=== PATIENT | male | born 1955 | race Caucasian/White ===

== ENCOUNTER 2021-09-24 03:55 | Inpatient (IN) ==
[2021-09-24] MEDS ORDERED: SODIUM CHLORIDE 0.9% 500 ML IV STA (04:21)
[2021-09-24] MEDS ORDERED: HYDROmorphone INJ 0.5 MG/0.5 ML SYR IV STA ×2 (04:21→05:54)
[2021-09-24] MEDS ORDERED: ONDANSETRON INJ 2 MG/ML 2 ML VIAL IV STA (04:21)
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
[2021-09-24 04:48] LABS: Basophils # (auto) 0.03 K/uL (0-0.2); Basophils % (auto) 0.2 %; Eosinophils % (auto) 1.6 %; Hematocrit (blood only) 31.8 % (42-52); Hemoglobin 11.2 g/dL (14.0-18.0); Immature Granulocytes # (auto) 0.04 K/uL (0.00-0.02); Immature Granulocytes % (auto) 0.3 %; Lymphocytes % (auto) 16.3 %; Mean Corpuscular Hemoglobin 30.2 pg (25-34); Mean Corpuscular Hgb Conc 35.2 g/dL (32-36); Mean Corpuscular Volume 85.7 fL (80-100); Mean Platelet Volume 8.4 fL (7.4-10.4); Monocytes # (auto) 0.75 K/uL (0.11-0.59); Monocytes % (auto) 5.8 %; Neutrophils # (auto) 9.77 K/uL (1.4-6.5); Neutrophils % (auto) 75.8 %; Platelet Count 366 K/uL (130-400); RDW Standard Deviation 40.5 fL (36.4-46.3); Red Blood Count 3.71 M/uL (4.7-6.1); White Blood Count 12.89 K/uL (4.8-10.8)
[2021-09-24] MEDS ORDERED: GI COCKTAIL ED USE PO ONE (04:53)
[2021-09-24 05:07] LABS: Alanine Aminotransferase 5 U/L (7-52); Albumin Level 3.9 gm/dl (3.4-5.0); Alkaline Phosphatase 80 U/L (34-104); Anion Gap 10 (3-11); Aspartate Aminotransferase 12 U/L (13-39); BUN Creatinine Ratio 20.3 (10-20); Bilirubin,Total 0.3 mg/dl (0.2-1.0); Blood Urea Nitrogen 13 mg/dl (6-23); Calcium 9.4 mg/dl (8.5-10.1); Carbon Dioxide 18 mmol/L (21-32); Chloride 98 mmol/L (98-107); Creatinine Clr Calc Pharmacy 105.3 ml/min; Est GFR (African American) 119.1 ml/min; Est GFR (Non-African American) 102.7 ml/min; Globulin 3.9 gm/dl (2.5-4.0); Glucose 99 mg/dl (70-99(Fasting)); Lipase 31 U/L (11-82); Potassium 3.3 mmol/L (3.5-5.1); Sodium 126 mmol/L (136-145); Total Protein 7.8 gm/dl (6.0-8.3)
[2021-09-24 05:09] LABS: Troponin I < 0.03 ng/ml (0-0.04)
[2021-09-24] MEDS ORDERED: SODIUM CHLORIDE 0.9% 1000ML 1,000 ML IV ONE (05:15)
[2021-09-24] MEDS ORDERED: OPTIRAY 320 100ml IV ONE (05:25)
[2021-09-24] MEDS ORDERED: FAMOTIDINE 20MG IV PUSH 20 MG/5 ML SYR IV STA (05:53)
[2021-09-24] MEDS ORDERED: POTASSIUM CHLORIDE CRTAB 20 MEQ TABCR PO STA (06:34)
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
--- NOTE | 2021-09-24 07:31 | CT Scan Report ---
ABDOMEN AND PELVIS CT WITH IV CONTRAST CT DOSE: 266.61 mGy.cm HISTORY: Subacute epigastric abdominal pain epigastric pain TECHNIQUE: Multiaxial CT images of the abdomen and pelvis were performed following the IV administrat ion of 94 cc of Optiray, A dose lowering technique was utilized adhering to the principles of ALARA. COMPARISON STUDY: Chest radiograph of same day FINDINGS: The imaged inferior cardiac chambers are unremarkable. There is emphysema with mild subsegmental biba silar atelectasis/scarring. Subpleural cystic changes of the lung bases with mild bronchiectasis. No pneumatosis or pneumoperitoneum. Streak artifact from hip arthroplasties limits evaluation of the pel loraine structures. Unremarkable spleen, adrenal glands, gallbladder and liver. There is atrophy of the pancreas with mil d fullness of the pancreatic head and uncinate process. No discrete pancreatic lesion or pancreatic d uctal dilation identified. There is inflammatory stranding within the pancreaticoduodenal groove. There are a few cysts of the kidneys measuring up to 2 cm on the right. There is no hydronephrosis. U rinary bladder wall thickening with partial distention. Prostamegaly. Pelvic basin phleboliths. Exten sive atherosclerosis of the abdominal aorta without aneurysm. No adenopathy. Unremarkable IVC. Patent portal vein. There is no bowel obstruction. There is wall thickening within the first and second portions of the d uodenum with adjacent inflammatory stranding. Additionally, there is mucosal hyperemia with a suggest ed 12 mm duodenal ulcer on image 143 series 3. No perforation or abscess identified. Mild wall thicke kelly of the rectosigmoid with partial distention. Colonic diverticulosis. Moderate fecal retention. T he appendix is not definitively seen. There is mild generalized body wall edema. No acute fracture. IMPRESSION: 1. There is mucosal ulceration of the duodenum with associated duodenal wall thickening and periduode nal inflammatory stranding. Findings may represent peptic ulcer disease, however correlation with GI consultation and endoscopy is needed to exclude an ulcerative mucosal lesion. This finding was called /faxed to the emergency department at time of dictation. 2. Trace edema within the pancreaticoduodenal groove is likely reactive. Correlate with lipase to exc lude concomitant acute pancreatitis. 3. No perforation or abscess. 4. No bowel obstruction. 5. Additional incidental findings as above. ACT 112: Negative or not required by law. The above report was generated using voice recognition software. It may contain grammatical, syntax o r spelling errors. Electronically signed by: Fabrice Hernandez M.D. 09/24/2021 7:29 AM
[2021-09-24] MEDS ORDERED: PROMETHAZINE HCL 6.25 MG in SODIUM CHLORIDE 0.9% 50 ML IV PRN (07:43)
[2021-09-24] MEDS ORDERED: ACETAMINOPHEN 325 MG TAB PO PRN ×2 (07:43→09:50)
--- NOTE | 2021-09-24 07:56 | XRay Report ---
XR chest 1V portable HISTORY: 66 years-old Male hyponatremia COMPARISON: CT abdomen and pelvis of same day TECHNIQUE: Portable AP view of the chest FINDINGS: Cardiac silhouette is upper limits of normal in size. Atherosclerosis of the aorta. Emphysema with ri ght greater than left bilateral reticular interstitial opacities. No pneumothorax, large pleural effu alex or overt pulmonary edema. Mild right lung volume loss. Degenerative changes of the shoulders and spine. IMPRESSION: 1. Emphysema with right greater than left reticular interstitial opacities suggestive of fibrosis. A superimposed interstitial pneumonitis would be difficult to exclude however is considered less likely . 2. No airspace consolidation typical for pneumonia. ACT 112: Negative or not required by law. The above report was generated using voice recognition software. It may contain grammatical, syntax o r spelling errors. Electronically signed by: Fabrice Hernandez M.D. 09/24/2021 7:54 AM
[2021-09-24] MEDS ORDERED: PANTOprazole 40 MG in SYRINGE 0 ML IV ONE (08:00)
[2021-09-24 08:39] LABS: Reticulocyte % 1.3 % (0.5-2.0); Reticulocytes # 0.05 10^6/uL (0.02-0.10)
[2021-09-24 09:12] LABS: Appearance Urine Clear (Clear); Bilirubin Urine Negative (Negative); Blood Urine Negative (Negative); Color Urine Yellow; Glucose Urine UA Negative (Negative); Ketones Urine Negative (Negative); Leukocyte Esterase Urine Negative (Negative); Nitrite Urine Negative (Negative); Protein Urine Negative (Negative); Specific Gravity Urine 1.025 (1.000-1.030); Urobilinogen Urine Negative (Negative)
[2021-09-24] MEDS: oxyCODONE HCL IR 5 MG TAB (IMMEDIATE RELEASE) PO PRN ×3 (09:24→21:05)
--- NOTE | 2021-09-24 09:33 | Electrocardiogram Report ---
Test Reason : Blood Pressure : / mmHG Vent. Rate : 074 BPM Atrial Rate : 074 BPM P-R Int : 148 ms QRS Dur : 140 ms QT Int : 394 ms P-R-T Axes : -11 027 029 degrees QTc Int : 437 ms Poor data quality, interpretation may be adversely affected Normal sinus rhythm Right bundle branch block Abnormal ECG When compared with ECG of 01-AUG-2004 14:50, Right bundle branch block has replaced Incomplete right bundle branch block Confirmed by David Gann ([id number]) on 09/24/2021 9:32:52 AM Referred By: REFERRED SELF Confirmed By:David Gann
[2021-09-24 09:56] LABS: Ferritin 61.6 ng/ml (8-388)
--- NOTE | 2021-09-24 10:10 | Gastrointestinal Consultation ---
Date of Consultation September 24, 2021 Assessment & Plan (1) Epigastric abdominal pain: (2) Abnormal CT of the abdomen: Epigastric pain and CT with suggestion of duodenal ulcer in the setting of high freq and amt of NSAID use - suggestive of a duodenal ulcer. Appreciate ED/primary hospitalists efforts to correct hyponatremia (currently at 126). Please continue to keep NPO. Plan for EGD today by Dr. Nash. Further recommendations to follow. Supervising Physician Co-Signing Physician Notes I saw and evaluated the patient in the emergency room. He presents with several months of worsening abdominal discomfort. He notes that he does use large amount of nonsteroidals on a regular basis due to his history of below-knee amputations. The patient also notes having intermittent solid food dysphagia to breads, meats ongoing for several years. He has never had an upper endoscopy nor colonoscopy performed. We are consulted due to a recent CT scan which shows evidence of ulceration within the duodenum without obvious perforation. Physical examination Thin male, no obvious distress, no scleral icterus Epigastric tenderness noted Impression: Patient found to have evidence of a duodenal ulcer on CT exams after presenting with abdominal pain in the setting of nonsteroidal use. Given the CT finding we could certainly proceed with upper endoscopy for further evaluation. Patient will ultimately need dilation of the esophagus at some point in the future, we will likely do this at his follow-up examination if duodenal ulcers were found in 3 months. Recommendations Upper endoscopy to be arranged N.p.o. today Protonix 40 mg twice daily for 8 weeks then 40 mg 1 time daily thereafter Carafate 1 g 4 times daily for 6 weeks Further recommendations depending on results of upper endoscopy History of Present Illness Reason for Consultation: Abd pain, abnormal CT Requesting Physician: Dr. Ramirez Attending Physician: Baldomero Ramirez MD History of Present Illness Mr. Aj Hunter is a 66 yr old male pt who presented to the ED today for hx of several months of intermittent upper abd pain in the setting of NSAID use for stump pain. On arrival CT suggests a duodenal ulcer. Hb is 11.2, BUN is 13. He tells me that he takes a total of 24 ibuprofen (200mg each) every day for his pain. He is not taking any regular acid reducers but takes TUMS frequently w only temporary improvement in his pain. Pain has been epigastric, at times severe, waking him from sleep. He denies N/V, diarrhea or black BMs. He has chronic constipation and his most recent BM was 2 days ago. Allergies Allergy/AdvReac Type Severity Reaction Status Date / Time No Known Allergies Allergy Unknown Verified 09/24/21 07:28 Home Medications Medication Instructions Recorded Confirmed Type ibuprofen 200 mg tablet 200 mg PO Q6H PRN 09/24/21 09/24/21 History Patient History Social History Smoking Status: Current every day smoker Hx Alcohol Use: No Hx Substance Use: No Preferred Language: Chinese Communication Ability: Effective Preparator Required: No Beliefs That Will Affect Care: None Current Living Situation: Other Current Living Situation Comment: Friends Feels Safe at Home: Yes Safety Concerns: Feels Safe At This Time Assistive Devices: Glasses, Prosthesis and Walker Review of Systems Review of Systems: ROS: Gen: Denies weakness, fevers + has been losing weight because he finds that his stumps hurt less if he is eating less. Eyes: No eye redness, or pain, no recent vision changes Resp: No SOB, no cough Cardio: No palpitations/irregular beats, no chest pain GI: As per HPI, otherwise (-). : Denies pain on urination Skin: No jaundice, itching or new rashes Physical Exam Constitutional: well developed, + thin and cooperative Eyes: PERRL, conjunctivae normal, anicteric sclerae ENMT: external ear and nose normal, oropharynx normal Respiratory: normal respiratory effort, lungs clear to auscultation normal respiratory effort and able to speak in complete sentences; no respiratory distress, no labored breathing, does not use accessory muscles and no cough Cardiovascular: RRR, no murmur, no edema Gastrointestinal (Abdomen): Inspection/Auscultation: abdomen normal to inspection and + hypoactive bowel sounds; abdomen not distended and no abdominal edema Percussion/Palpation: + abdomen tender (epigastric ) Skin: no rashes, warm and dry normal turgor and + pallor Neurologic: PERRL, EOMI, accommodation nl, no face palsy, no dysarthria awake; not confused Psychiatric: A+Ox3, euthymic affect Lymphatic: no cervical or axillary lymphadenopathy Results & Data ([facility]) Vital Signs (Past 12 Hours) Vital Signs Temp Pulse Pulse Resp BP BP Pulse Ox 09/24/21 08:30 72 11 L 138/89 100 09/24/21 08:00 77 17 146/90 H 100 09/24/21 07:30 72 4 L 140/81 98 09/24/21 07:01 89 23 123/105 H 09/24/21 06:30 71 17 136/83 98 09/24/21 06:00 70 71 15 135/82 135/82 99 09/24/21 04:23 85 18 98 09/24/21 04:17 75 18 139/70 98 09/24/21 03:59 36.5 C 78 18 139/70 98 Laboratory Results WBC 12.8, Hb 11.2, Hct 31.8, plts 366, Na 3.3, Cl 98, CO2 18, BUN 13, Cr. 0.64. Diagnostic Findings CTAP today: . 1 There is mucosal ulceration of the duodenum with associated duodenal wall thickening and periduodenal inflammatory stranding. Findings may represent peptic ulcer disease, however correlation with GI consultation and endoscopy is needed to exclude an ulcerative mucosal lesion. This finding was called/faxed to the emergency department at time of dictation. 2. Trace edema within the pancreaticoduodenal groove is likely reactive. Correlate with lipase to exclude concomitant acute pancreatitis. 3. No perforation or abscess. 4. No bowel obstruction. 5. Additional incidental findings as above.
--- NOTE | 2021-09-24 11:14 | Anesthesiology Consultation ---
Date of Service September 24, 2021 History Surgery Operation Date: 09/24/21 16:15 Proposed Procedures p Esophagogastroduodenoscopy Dr Saad Nash, DO Height/Weight Height: 5 ft 9 in Weight: 64.7 kg Allergies Allergy/AdvReac Type Severity Reaction Status Date / Time No Known Allergies Allergy Unknown Verified 09/24/21 07:28 Medications Home Medications Medication Instructions Recorded Confirmed Last Taken ibuprofen 200 mg tablet 200 mg PO Q6H PRN 09/24/21 09/24/21 09/24/21 00:00 800 mg Active Medications Generic Name Dose Route Start Last Admin Trade Name Freq PRN Reason Stop Dose Admin Oxycodone HCl 5 mg 09/24/21 07:43 09/24/21 09:24 Oxycodone Hcl Ir 5 Mg Tab (Immediate Release) PO 10/08/21 07:42 5 mg Q4H PRN Administration Pain Past Medical History hyponatremia;anemia;COPD/emphysema;interstitial fibrosis,poss. pneumo emily;extensive athersclerotic plaque of abdominal aorta Exercise / Class Metabolic Activity III < 4 Walking/Shop/Light housework Past Anesthesia History No Hx of Anesthesia Complications and No Family Hx of Anesthesia Complications History of PONV No Hx of PONV and No Hx of Motion Sickness Social History Smoking Status: Current every day smoker tobacco type: cigarettes Hx Alcohol Use: No Hx Substance Use: No Physical Exam Vital Signs Last Vital Signs Temp 37 C 09/24/21 10:00 Pulse 80 09/24/21 10:00 Resp 17 09/24/21 10:00 BP 137/95 09/24/21 10:00 Pulse Ox 99 09/24/21 10:00 Testing Laboratory Results 09/24/21 04:39 Urine Color Yellow 09/24/21 08:50 Urine Appearance Clear (Clear) 09/24/21 08:50 Urine pH 7.0 (4.5-7.5) 09/24/21 08:50 Ur Specific [place] 1.025 (1.000-1.030) 09/24/21 08:50 Urine Protein Negative (Negative) 09/24/21 08:50 Urine Glucose (UA) Negative (Negative) 09/24/21 08:50 Urine Ketones Negative (Negative) 09/24/21 08:50 Urine Nitrite Negative (Negative) 09/24/21 08:50 Ur Leukocyte Esterase Negative (Negative) 09/24/21 08:50 Blood Type AB Positive 09/24/21 08:47 Antibody Screen NEGATIVE 09/24/21 08:47 Electrocardiogram Date: 09/24/21 Findings: + NSR @ (at 74;) and + RBBB Chest X-Ray Date: 09/24/21 Findings: + infiltrate (emphysema; R> L ,interstitial opacities suggestive of fibrosis,? pneumonia)
[2021-09-24] MEDS ORDERED: PROPOFOL IV EMULSION 10 MG/ML 20 ML VIAL IV ONE (11:31)
[2021-09-24] MEDS ORDERED: LIDOCAINE 2% 2 ML VIAL/AMP(20MG/ML) INFIL ONE (11:31)
[2021-09-24] MEDS ORDERED: ONDANSETRON INJ 2 MG/ML 2 ML VIAL ONE (11:34)
--- NOTE | 2021-09-24 11:57 | Communication Note ---
Date of Service: September 24, 2021 The patient underwent upper endoscopy today. We did identify a Schatzki's ring which was dilated with the endoscope. He was also found to have evidence of gastritis which we performed biopsies to screen for H. pylori. Finally the patient was found to have a large ulcer at the apex of his duodenal bulb involving the posterior portion. Recommendations Mechanical soft diet Protonix for omeprazole 40 mg twice daily For 6 weeks then 1 time daily thereafter Carafate 1 g 4 times daily for 4 weeks Repeat upper endoscopy in 8 to 12 weeks. Please call with any questions or concerns GI to sign off
--- NOTE | 2021-09-24 12:04 | GI REPORT ---
Patient Name: Dale Rohca Procedure Date: 09/24/2021 11:31 AM Date of : 1955 Admit Type: Inpatient Age: 66 Gender: Male Attending MD: Jhoana Nash DO Procedure: Upper GI endoscopy Providers: Jhoana Nash DO Referring MD: Referred Self Indications: Epigastric abdominal pain, Dysphagia, Abnormal CT of the GI tract Medicines: Monitored Anesthesia Care Complications: No immediate complications. Estimated blood loss: Minimal. Estimated Blood Loss: Estimated blood loss was minimal. Procedure: Pre-Anesthesia Assessment: - Prior to the procedure, a History and Physical was performed, and patient medications, allergies and sensitivities were reviewed. The patient's tolerance of previous anesthesia was reviewed. - The risks and benefits of the procedure and the sedation options and risks were discussed with the patient. All questions were answered and informed consent was obtained. - Patient identification and proposed procedure were verified prior to the procedure by the physician, the nurse and the relief captain. The procedure was verified in the procedure room. - Pre-procedure physical examination revealed no contraindications to sedation. - ASA Grade Assessment: II - A patient with mild systemic disease. - After reviewing the risks and benefits, the patient was deemed in satisfactory condition to undergo the procedure. - The anesthesia plan was to use monitored anesthesia care (MAC). - Immediately prior to administration of medications, the patient was re-assessed for adequacy to receive sedatives. - The heart rate, respiratory rate, oxygen saturations, blood pressure, adequacy of pulmonary ventilation, and response to care were monitored throughout the procedure. - The physical status of the patient was re-assessed after the procedure. After obtaining informed consent, the endoscope was passed under direct vision. Throughout the procedure, the patient's blood pressure, pulse, and oxygen saturations were monitored continuously. The Endoscope was introduced through the mouth, and advanced to the third part of duodenum. The upper GI endoscopy was accomplished without difficulty. The patient tolerated the procedure well. Findings: A moderate Schatzki ring was found at the gastroesophageal junction. This was dilated with passage of the endoscope (mild trauma noted at the site of the ring) Diffuse moderate inflammation characterized by congestion (edema), erythema and granularity was found in the entire examined stomach. Biopsies were taken with a cold forceps for histology. The pathology specimen was placed into Bottle A. Estimated blood loss was minimal. One non-obstructing non-bleeding cratered duodenal ulcer with no stigmata of bleeding was found in the duodenal bulb. The lesion was at least 30 mm in largest dimension. The second portion of the duodenum and third portion of the duodenum were normal. Impression: - Moderate Schatzki ring, dilated with the endoscope today. - Gastritis. Biopsied. - Non-obstructing non-bleeding duodenal ulcer with no stigmata of bleeding. NSAID induced etiology. - Normal second portion of the duodenum and third portion of the duodenum. Recommendation: - The patient will be observed post-procedure, until all discharge criteria are met. - Mechanical soft diet. - No aspirin, ibuprofen, naproxen, or other non-steroidal anti-inflammatory drugs for 12 weeks. - Use Prilosec (omeprazole) 40 mg PO BID for 6 weeks then reduce to 40 mg daily. - Use sucralfate tablets 1 gram PO QID for 4 weeks. Jhoana Nash D.O. Jhoana Nash, DO 09/24/2021 12:03:30 PM This report has been signed electronically. Note Initiated On: 09/24/2021 11:31 AM Number of Addenda: 0 I attest to the content of the Intraoperative Record and orders documented therein, exceptions below {[id number]}
--- NOTE | 2021-09-24 12:13 | Anesthesiology Progress Note ---
Date of Service September 24, 2021 Anesthesia Post Procedure Vital Signs Vital Signs: Temp Pulse Pulse Resp BP BP Pulse Ox 09/24/21 12:07 65 12 109/65 96 09/24/21 11:17 36.8 C 75 18 127/74 97 09/24/21 10:00 37 C 80 17 137/95 99 09/24/21 08:30 72 11 L 138/89 100 09/24/21 08:00 77 17 146/90 H 100 09/24/21 07:30 72 4 L 140/81 98 09/24/21 07:01 89 23 123/105 H 09/24/21 06:30 71 17 136/83 98 09/24/21 06:00 70 71 15 135/82 135/82 99 09/24/21 04:23 85 18 98 09/24/21 04:17 75 18 139/70 98 09/24/21 03:59 36.5 C 78 18 139/70 98 Pain Intensity Medial Chest: Pain Intensity: 4 Transfer of Care Handoff Completed per policy Notes Mental Status: alert / awake / arousable and participated in evaluation Patient Amnestic to Procedure: Yes Nausea / Vomiting: adequately controlled Pain: adequately controlled Airway Patency, RR, SpO2: stable & adequate BP & HR: stable & adequate Hydration State: stable & adequate Anesthetic Complications: no major complications apparent and Pt Satisfied with anesthetic care
[2021-09-24] MEDS: GABAPENTIN 100 MG CAP PO SCH ×2 (15:10→21:02)
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
[2021-09-24] MEDS: SUCRALFATE 1 GM TAB PO SCH ×2 (17:46→21:02)
[2021-09-24] MEDS: MAGNESIUM SULFATE / D5W 1 GM/100 ML BAG IV SCH ×2 (17:46→21:00)
[2021-09-24] MEDS ORDERED: GABAPENTIN 100 MG CAP PO SCH (21:00)
[2021-09-24] MEDS ORDERED: PANTOprazole 40 MG in SYRINGE 0 ML IV SCH (21:00)
[2021-09-25] MEDS: oxyCODONE HCL IR 5 MG TAB (IMMEDIATE RELEASE) PO PRN ×5 (01:12→20:43)
[2021-09-25 06:40] LABS: Basophils # (auto) 0.04 K/uL (0-0.2); Basophils % (auto) 0.5 %; Eosinophils # (auto) 0.27 K/uL (0-0.5); Eosinophils % (auto) 3.4 %; Hematocrit (blood only) 31.4 % (42-52); Hemoglobin 10.7 g/dL (14.0-18.0); Immature Granulocytes # (auto) 0.01 K/uL (0.00-0.02); Immature Granulocytes % (auto) 0.1 %; Lymphocytes # (auto) 2.39 K/uL (1.2-3.4); Lymphocytes % (auto) 29.7 %; Mean Corpuscular Hemoglobin 29.9 pg (25-34); Mean Corpuscular Hgb Conc 34.1 g/dL (32-36); Mean Corpuscular Volume 87.7 fL (80-100); Mean Platelet Volume 8.6 fL (7.4-10.4); Monocytes # (auto) 0.75 K/uL (0.11-0.59); Monocytes % (auto) 9.3 %; Neutrophils # (auto) 4.58 K/uL (1.4-6.5); Platelet Count 433 K/uL (130-400); RDW Coefficient of Variation 13.4 % (11.5-14.5); RDW Standard Deviation 43.2 fL (36.4-46.3); Red Blood Count 3.58 M/uL (4.7-6.1); White Blood Count 8.04 K/uL (4.8-10.8)
[2021-09-25 07:18] LABS: Potassium 4.4 mmol/L (3.5-5.1)
[2021-09-25 07:19] LABS: Calcium 8.8 mg/dl (8.5-10.1); Creatinine Clr Calc Pharmacy 104.2 ml/min; Est GFR (African American) 120.7 ml/min; Est GFR (Non-African American) 104.1 ml/min; Magnesium 1.7 mg/dl (1.7-2.4)
[2021-09-25] MEDS: SUCRALFATE 1 GM TAB PO SCH ×4 (08:14→20:45)
[2021-09-25] MEDS: GABAPENTIN 100 MG CAP PO SCH ×3 (08:14→20:45)
[2021-09-25] MEDS: PANTOprazole 40 MG TAB PO SCH ×2 (09:02→20:44)
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
--- NOTE | 2021-09-25 18:25 | XRay Report ---
XR tibia fibula LT 2V HISTORY: 66 years-old Male left bka stump pain acute pain of the left lower extremity COMPARISON: None TECHNIQUE: 2 views of the left tibia and fibula FINDINGS: Prior below the knee amputation. Demineralized appearance of the bones. There is cortical thickening along the anterior and distal cortices at the amputation stump. No definite acute cortical erosions a re identified. Moderate soft tissue swelling with suggested soft tissue wounds. No acute fracture or dislocation. Mild osteoarthritis of the knee. No large joint effusion. IMPRESSION: Prior below the knee dictation. Cortical thickening along the anterior and distal cortice s of the amputation stump may represent sequela of chronic osteomyelitis. No acute cortical erosions are identified. ACT 112: Negative or not required by law. The above report was generated using voice recognition software. It may contain grammatical, syntax o r spelling errors. Electronically signed by: Fabrice Hernandez M.D. 09/25/2021 6:24 PM
[2021-09-26] MEDS: oxyCODONE HCL IR 5 MG TAB (IMMEDIATE RELEASE) PO PRN ×5 (01:48→22:56)
[2021-09-26 07:41] LABS: Basophils # (auto) 0.05 K/uL (0-0.2); Basophils % (auto) 0.5 %; Eosinophils # (auto) 0.32 K/uL (0-0.5); Eosinophils % (auto) 3.5 %; Hematocrit (blood only) 31.2 % (42-52); Hemoglobin 10.7 g/dL (14.0-18.0); Immature Granulocytes # (auto) 0.02 K/uL (0.00-0.02); Immature Granulocytes % (auto) 0.2 %; Lymphocytes # (auto) 2.06 K/uL (1.2-3.4); Lymphocytes % (auto) 22.4 %; Mean Corpuscular Hemoglobin 30.1 pg (25-34); Mean Corpuscular Hgb Conc 34.3 g/dL (32-36); Mean Corpuscular Volume 87.6 fL (80-100); Mean Platelet Volume 8.8 fL (7.4-10.4); Monocytes # (auto) 0.83 K/uL (0.11-0.59); Neutrophils % (auto) 64.4 %; Platelet Count 409 K/uL (130-400); RDW Coefficient of Variation 13.3 % (11.5-14.5); Red Blood Count 3.56 M/uL (4.7-6.1); White Blood Count 9.18 K/uL (4.8-10.8)
[2021-09-26] MEDS: PANTOprazole 40 MG TAB PO SCH ×2 (07:48→20:36)
[2021-09-26] MEDS: GABAPENTIN 100 MG CAP PO SCH ×3 (07:49→20:37)
[2021-09-26] MEDS: SUCRALFATE 1 GM TAB PO SCH ×4 (07:49→20:36)
[2021-09-26 08:18] LABS: BUN Creatinine Ratio 17.3 (10-20); Calcium 8.8 mg/dl (8.5-10.1); Creatinine Clr Calc Pharmacy 115.6 ml/min; Est GFR (African American) 129.7 ml/min; Est GFR (Non-African American) 111.9 ml/min; Magnesium 1.4 mg/dl (1.7-2.4); Phosphorus 2.5 mg/dl (2.5-4.9)
--- NOTE | 2021-09-26 08:27 | Nephrology Progress Note ---
Date of Service September 26, 2021 Assessment & Plan (1) Chronic hyponatremia: Plan: Hypotonic euvolemic versus hypovolemic hyponatremia initially improved at acceptable rate after stopping nsaid which can cause this problem and w/ patient per his report taking better PO. However improvement now stalled. He may be prone to this problem due to lung disease. w/ sNa 126, improved to 131 by 24 hrs later with minimal intervention apart from stopping nsaid w/ gentle fluid repletion; no other medications or fluid intervention needed He is further auto diuresing today and is overall 3.4 L negative in the admission, remarkable in a 58 kg pt. Continue NSAID avoidance now and at hospital discharge -will give 1L NS and recheck labs this PM 1400 >> note this may compound autodiuresis Maintain eukalemia -daily BMP -recommend dietary consult versus simply offering/pushing protein supplements > pt is restricting food in part d/t GI sx as well; RN expressed concern on this as well -No need to start fluid limits or diuretics or other interventions at this time but may be needed if sodium does not correct with above measures Admission and Anticipated Discharge Date Admission Date: September 24, 2021 Subjective autodiuresing > 2.3L neg yesterday; no edema, no sob; ortho ordering scans Review of Systems Review of Systems: All systems reviewed & are unremarkable except as noted in Subjective Physical Exam Constitutional: well developed, + thin, + frail appearing and cooperative; no acute distress Eyes: EOM intact bilaterally ENMT: Ears: no external ear abnormality Nose: no external nose abnormality Mouth: + dry oral mucous membranes Neck: no nuchal rigidity Respiratory: normal respiratory effort Auscultation: + diminished lung sounds Cardiovascular: RRR, no murmur, no edema Gastrointestinal (Abdomen): Inspection/Auscultation: normal bowel sounds Percussion/Palpation: abdomen soft; abdomen nontender Musculoskeletal: Extremities: strength 5/5 throughout and + lower extremity abnormal to inspection Skin: no rashes, warm and dry Psychiatric: Orientation: oriented x 3 Results & Data ([facility]) Vital Signs (Past 12 Hours) Vital Signs Temp Pulse Pulse Resp BP Pulse Ox 09/26/21 07:17 67 09/26/21 06:58 37.0 C 70 20 120/73 98 09/26/21 03:35 37.0 C 71 20 114/69 99 09/25/21 23:36 36.4 C L 69 20 100/64 97 09/25/21 23:30 66 Laboratory Results 09/26/21 06:56 09/26/21 06:56
[2021-09-26] MEDS ORDERED: SODIUM CHLORIDE 0.9% 1000ML 1,000 ML IV SCH (08:30)
[2021-09-26] MEDS ORDERED: OPTIRAY 320 100ml IV ONE (12:37)
--- NOTE | 2021-09-26 13:07 | CT Scan Report ---
CT tib/fib LT wo/w con HISTORY: 66 years-old Male Left Stump Pain prior left] knee amputation. COMPARISON: Left tibia and fibula radiographs September 25, 2021 TECHNIQUE: Multiple axial CT images of the left tibia and fibula were obtained both with and without the use of 94 mL Optiray 320. A dose lowering technique was used consistent with the principals of [facility]. FINDINGS: Prior below the knee amputation. There is moderate skin thickening and enhancement at the amputation stump with soft tissue irregularity and possible skin wounds. Cutaneous calcifications. Subcutaneous edema without abscess. Diffuse muscle atrophy. Disuse osteopenia. There is a least mild tricompartmental osteoarthritis of the knee. No acute fractu re or dislocation. Subcentimeter sclerotic focus of the medial proximal tibial metaphysis is suggesti ve of a bone island. There is moderate cortical thickening of the distal tibia at the amputation stum p with interval appearing periosteal elevation, most pronounced along the posterior distal margins. N o definitive acute osseous erosions identified. IMPRESSION: 1. Prior below the knee amputation. Moderate cortical thickening along the anterior and distal cortic es of the amputation stump with mature periosteal elevation is suspicious for sequela of chronic oste omyelitis. No acute cortical erosions are identified. 2. Moderate cellulitis without abscess. ACT 112: Negative or not required by law. The above report was generated using voice recognition software. It may contain grammatical, syntax o r spelling errors. Electronically signed by: Fabrice Hernandez M.D. 09/26/2021 1:06 PM
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
[2021-09-26 16:30] LABS: BUN Creatinine Ratio 15.5 (10-20); Calcium 8.2 mg/dl (8.5-10.1); Creatinine Clr Calc Pharmacy 103.6 ml/min; Potassium 3.7 mmol/L (3.5-5.1)
[2021-09-27] MEDS: oxyCODONE HCL IR 5 MG TAB (IMMEDIATE RELEASE) PO PRN ×5 (03:10→20:32)
[2021-09-27 06:14] LABS: Basophils # (auto) 0.05 K/uL (0-0.2); Basophils % (auto) 0.6 %; Eosinophils # (auto) 0.46 K/uL (0-0.5); Eosinophils % (auto) 5.2 %; Hematocrit (blood only) 30.7 % (42-52); Hemoglobin 10.4 g/dL (14.0-18.0); Immature Granulocytes # (auto) 0.03 K/uL (0.00-0.02); Immature Granulocytes % (auto) 0.3 %; Lymphocytes # (auto) 2.34 K/uL (1.2-3.4); Lymphocytes % (auto) 26.4 %; Mean Corpuscular Hemoglobin 29.6 pg (25-34); Mean Corpuscular Hgb Conc 33.9 g/dL (32-36); Mean Corpuscular Volume 87.5 fL (80-100); Mean Platelet Volume 8.4 fL (7.4-10.4); Monocytes # (auto) 0.87 K/uL (0.11-0.59); Monocytes % (auto) 9.8 %; Neutrophils % (auto) 57.7 %; Platelet Count 373 K/uL (130-400); RDW Coefficient of Variation 13.3 % (11.5-14.5); RDW Standard Deviation 42.6 fL (36.4-46.3); Red Blood Count 3.51 M/uL (4.7-6.1); White Blood Count 8.85 K/uL (4.8-10.8)
[2021-09-27 06:35] LABS: BUN Creatinine Ratio 18.8 (10-20); Calcium 8.6 mg/dl (8.5-10.1); Creatinine Clr Calc Pharmacy 125.2 ml/min; Est GFR (Non-African American) 115.6 ml/min; Potassium 3.9 mmol/L (3.5-5.1)
[2021-09-27] MEDS: GABAPENTIN 100 MG CAP PO SCH ×3 (07:36→20:32)
[2021-09-27] MEDS: PANTOprazole 40 MG TAB PO SCH ×2 (07:37→20:32)
[2021-09-27] MEDS: SUCRALFATE 1 GM TAB PO SCH ×4 (07:37→20:32)
--- NOTE | 2021-09-27 10:06 | Nephrology Progress Note ---
Date of Service September 27, 2021 Assessment & Plan (1) Chronic hyponatremia: Plan: Hypotonic euvolemic versus hypovolemic hyponatremia initially improved at acceptable rate after stopping nsaid which can cause this problem and w/ patient per his report taking better PO. However improvement now stalled. He may be prone to this problem due to chronic insterstitial lung disease. w/ sNa 126, improved to 131 by 24 hrs later with minimal intervention apart from stopping nsaid w/ gentle fluid repletion; no other medications or fluid intervention needed He is auto diuresing today despite IVF (not uncommon) and is overall now 4.4L negative in the admission, remarkable in a 58 kg pt (nearly 8% of his admission body weight) Continue NSAID avoidance now and at hospital discharge -eval polyuria as below > combo of hyponatremia and polyuria without polydipsia or glucosuria is unusual Maintain eukalemia -daily BMP ->recheck serum osms w/ tomorrow labs ->>recommend dietary consult in addition to offering/pushing protein supplements > pt is restricting food in part d/t GI sx as well; RN expressed concern on this as well; RD's task would be to understand how pt eats at home /understand his dietary limits/practices and identify ways to increase protein and sodium in his diet at home WELL as to offer/order higher sodium diet here; encourage salty snacks -No need to start fluid limits or salt tabs or diuretics or other interventions at this time but may be needed if sodium does not correct with above measures If he will agree to it (hx of not accessing medical care routinely), he should have neph follow up after d/c with me 2-4 wks post d/c to discuss labs below Care coordinated w/ Dr Stokes (2) Polyuria: Plan: pt consistently polyuric for unclear reasons > he had poor po prior to admission and was volume depleted > has had overall 2.5L NS this admission (not an excessive amount) but polyuric with or without the saline. Admission UA w/o glucose and admission urine osms 259 w/ serum osms 269; nothing to suggest solute diuresis. chemistries not c/w occult diuretics >then start 24 hr urine for osm, Na, K, Cl, Creat, glucose, urea and a diuretic screen -some of these labs will not post before discharge, most likely Admission and Anticipated Discharge Date Admission Date: September 24, 2021 Subjective no interval events; no sob, no edema; feels his polyuria from large josué devin intake Review of Systems Review of Systems: All systems reviewed & are unremarkable except as noted in Subjective Physical Exam Constitutional: well developed, + thin, + frail appearing and cooperative; no acute distress Eyes: EOM intact bilaterally ENMT: Ears: no external ear abnormality Nose: no external nose abnormality Mouth: + dry oral mucous membranes Neck: no nuchal rigidity Respiratory: normal respiratory effort Auscultation: + diminished lung sounds Cardiovascular: RRR, no murmur, no edema Gastrointestinal (Abdomen): Inspection/Auscultation: normal bowel sounds Percussion/Palpation: abdomen soft; abdomen nontender Musculoskeletal: Extremities: strength 5/5 throughout and + lower extremity abnormal to inspection Skin: no rashes, warm and dry Psychiatric: Orientation: oriented x 3 Results & Data ([facility]) Vital Signs (Past 12 Hours) Vital Signs Temp Pulse Pulse Resp BP Pulse Ox 09/27/21 08:04 65 09/27/21 07:08 37.4 C 71 20 118/69 97 09/27/21 03:50 36.9 C 66 20 118/74 97 09/26/21 23:15 37.2 C 72 20 113/68 97 09/26/21 23:05 79 Laboratory Results 09/27/21 05:52 09/27/21 05:52
[2021-09-27 11:42] LABS: Appearance Urine Clear (Clear); Bacteria Urine Automated Negative (Negative); Bilirubin Urine Negative (Negative); Blood Urine Negative (Negative); Cast Urine Automated 0 /lpf (0-5); Color Urine Yellow; Glucose Urine UA Negative (Negative); Ketones Urine Negative (Negative); Leukocyte Esterase Urine Trace (Negative); Nitrite Urine Negative (Negative); Protein Urine Negative (Negative); RBC Urine Automated 0-4 /hpf (0-4); Specific Gravity Urine 1.007 (1.000-1.030); Urobilinogen Urine Negative (Negative); pH Urine 7.5 (4.5-7.5)
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
--- NOTE | 2021-09-27 19:45 | Anesthesiology Consultation ---
Date of Service September 27, 2021 Assessment & Plan (1) Encounter for pre-operative examination: Chart Review Chart Review: Acceptable Risk for Surgery and Patient NOT seen in Pre Admission Testing Consults Requested none History Surgery Operation Date: 09/24/21 16:15 Proposed Procedures p Esophagogastroduodenoscopy Dr Saad Nash DO Operation Date: 09/28/21 07:30 Proposed Procedures p Debridement Left Below Knee Amputation Stump, Possible Revision Below Knee Amputation - Govind Sánchez DO Height/Weight Height: 5 ft 9 in Weight: 59.6 kg Allergies Allergy/AdvReac Type Severity Reaction Status Date / Time No Known Allergies Allergy Unknown Verified 09/24/21 07:28 Medications Home Medications Medication Instructions Recorded Confirmed Last Taken ibuprofen 200 mg tablet 200 mg PO Q6H PRN 09/24/21 09/24/21 09/24/21 00:00 800 mg Active Medications Generic Name Dose Route Start Last Admin Trade Name Freq PRN Reason Stop Dose Admin Gabapentin 100 mg 09/24/21 14:24 09/27/21 14:01 Gabapentin 100 Mg Cap PO 10/24/21 14:23 100 mg TID [facility] Administration Oxycodone HCl 5 mg 09/24/21 07:43 09/27/21 16:18 Oxycodone Hcl Ir 5 Mg Tab (Immediate Release) PO 10/08/21 07:42 5 mg Q4H PRN Administration Pain Pantoprazole Sodium 40 mg 09/25/21 09:00 09/27/21 07:37 Pantoprazole 40 Mg Tab PO 10/25/21 08:59 40 mg BID [facility] Administration Sucralfate 1 gm 09/24/21 16:30 09/27/21 16:19 Sucralfate 1 Gm Tab PO 10/24/21 16:29 1 gm ACHS [facility] Administration NPO Date Last Intake of Fluids: 09/24/21 Time Last Intake of Fluids: 10:00 Last Intake of Fluids Comment: sips with pain medication Date Last Intake of Solids: 09/23/21 Time Last Intake of Solids: 22:00 Past Medical History Medical History Chronic hyponatremia Hip pain, chronic Tobacco abuse Past Surgical History Surgical History S/P BKA (below knee amputation) bilateral Past Anesthesia History No Hx of Anesthesia Complications Social History Smoking Status: Current every day smoker tobacco type: cigarettes Hx Alcohol Use: No Hx Substance Use: No Physical Exam Vital Signs Last Vital Signs Temp 97.5 F L 09/27/21 15:40 Pulse 83 09/27/21 15:48 Resp 18 09/27/21 15:40 BP 130/72 09/27/21 15:40 Pulse Ox 96 09/27/21 15:40 Testing Laboratory Results 09/27/21 05:52 09/27/21 05:52 Urine Color Yellow 09/27/21 11:20 Urine Appearance Clear (Clear) 09/27/21 11:20 Urine pH 7.5 (4.5-7.5) 09/27/21 11:20 Ur Specific [place] 1.007 (1.000-1.030) 09/27/21 11:20 Urine Protein Negative (Negative) 09/27/21 11:20 Urine Glucose (UA) Negative (Negative) 09/27/21 11:20 Urine Ketones Negative (Negative) 09/27/21 11:20 Urine Nitrite Negative (Negative) 09/27/21 11:20 Ur Leukocyte Esterase Trace (Negative) H 09/27/21 11:20 Urine WBC (Auto) 1-5 /hpf (0-5) 09/27/21 11:20 Urine RBC (Auto) 0-4 /hpf (0-4) 09/27/21 11:20 U Hyaline Cast (Auto) 0 /lpf (0-5) 09/27/21 11:20 U Epithel Cells (Auto) 5-10 /lpf (0-5) H 09/27/21 11:20 Urine Bacteria (Auto) Negative (Negative) 09/27/21 11:20 Blood Type AB Positive 09/24/21 08:47 Antibody Screen NEGATIVE 09/24/21 08:47 Electrocardiogram Date: 09/24/21 Findings: + RBBB Chest X-Ray Date: 09/24/21 emphysema
--- NOTE | 2021-09-27 20:30 | XRay Report ---
XR hip LT min 2V, XR hip RT min 2V CLINICAL HISTORY: Status post bilateral hip replacements. Assess for stability.. COMPARISON STUDY: No previous studies for comparison. TECHNIQUE: Both hips each to views FINDINGS: Bones: There is no evidence for an acute fracture or dislocation. There is no lytic or blastic lesion . Joints: The patient is status post bilateral noncemented hip prostheses. The prosthetic components ar e in anatomic alignment with no gross evidence for loosening. The bones are in anatomic alignment. Soft tissues: There is no focal soft tissue abnormality. There is no radiopaque foreign body. IMPRESSION: No acute osseous pathology. Intact bilateral hip replacements. ACT 112: Negative or not required by law. Electronically signed by: Morgan Smith M.D. 09/27/2021 8:29 PM
[2021-09-28] MEDS: oxyCODONE HCL IR 5 MG TAB (IMMEDIATE RELEASE) PO PRN ×4 (03:09→21:23)
[2021-09-28] MEDS: CHLORASEPTIC 1.4% SOLN 180 ML BTL MT PRN ×2 (05:59→13:16)
[2021-09-28] MEDS: GABAPENTIN 100 MG CAP PO SCH ×3 (08:15→21:17)
[2021-09-28] MEDS: NYSTATIN SUSP 500,000 U/5 ML UDC PO SCH ×4 (08:15→21:17)
[2021-09-28] MEDS: SUCRALFATE 1 GM TAB PO SCH ×4 (08:15→21:16)
[2021-09-28] MEDS: PANTOprazole 40 MG TAB PO SCH ×2 (08:15→21:17)
[2021-09-28] MEDS ORDERED: PROMETHAZINE HCL 6.25 MG in SODIUM CHLORIDE 0.9% 50 ML IV PRN (08:44)
[2021-09-28] MEDS ORDERED: ATROPINE SULFATE 0.1 MG/ML 10ML SYR IV PRN (08:44)
[2021-09-28] MEDS ORDERED: ONDANSETRON INJ 2 MG/ML 2 ML VIAL IV PRN ×2 (08:44→13:10)
[2021-09-28] MEDS ORDERED: LIDOCAINE 2% 2 ML VIAL/AMP(20MG/ML) INFIL ONE (08:47)
[2021-09-28] MEDS ORDERED: PROPOFOL IV EMULSION 10 MG/ML 20 ML VIAL IV ONE (08:47)
--- NOTE | 2021-09-28 08:47 | History & Physical Bridge Note ---
Date of Service September 28, 2021 History & Physical Bridge Note I have examined the patient, reviewed the History & Physical and in the interval since the performance of the History & Physical I have noted the following changes of clinical significance: Will require left above knee amputation.
[2021-09-28] MEDS ORDERED: MIDAZOLAM HCL 1 MG/ML 2ML VIAL ONE (08:48)
[2021-09-28] MEDS ORDERED: fentaNYL citrate 100 MCG/2 ML VIAL ONE ×3 (08:48→10:43)
[2021-09-28] MEDS ORDERED: NYSTATIN SUSP 500,000 U/5 ML UDC PO SCH (09:00)
[2021-09-28 09:21] LABS: BUN Creatinine Ratio 15.3 (10-20); Calcium 8.8 mg/dl (8.5-10.1); Creatinine Clr Calc Pharmacy 102.9 ml/min; Est GFR (African American) 123.1 ml/min; Est GFR (Non-African American) 106.2 ml/min; Potassium 3.9 mmol/L (3.5-5.1)
[2021-09-28] MEDS ORDERED: LIDOCAINE 1% LOCAL 20 ML VIAL ONE (09:37)
[2021-09-28] MEDS ORDERED: ceFAZolin 330 MG/ML 1 GM VIAL ONE (09:37)
[2021-09-28] MEDS ORDERED: ceFAZolin 2000MG 2,000 MG/15 ML SYR IV ONE (09:48)
[2021-09-28] MEDS ORDERED: ONDANSETRON INJ 2 MG/ML 2 ML VIAL ONE (10:12)
[2021-09-28] MEDS ORDERED: DEXAMETHASONE SOD INJ 4 MG/ML VIAL ONE (10:12)
[2021-09-28] MEDS ORDERED: PHENYLEPHRINE 100MCG/ML 5ML SYR ONE (10:12)
--- NOTE | 2021-09-28 10:51 | Nephrology Progress Note ---
Date of Service September 28, 2021 Assessment & Plan (1) Chronic hyponatremia: Plan: Hypotonic euvolemic versus hypovolemic hyponatremia initially improved at acceptable rate after stopping nsaid which can cause this problem and w/ patient per his report taking better PO. However improvement now stalled. He may be prone to this problem due to chronic insterstitial lung disease. w/ sNa 126, improved to 131 by 24 hrs later with minimal intervention apart from stopping nsaid w/ gentle fluid repletion; no other medications or fluid intervention needed. - sNA IS 132 today -eval polyuria as below > combo of hyponatremia and polyuria without polydipsia or glucosuria is unusual Maintain eukalemia -daily BMP ->>recommend dietary consult in addition to offering/pushing protein supplements > pt is restricting food in part d/t GI sx- encourage higher sodium diet here; encourage salty snack. He will need salt tabs if sodium does not correct with above measures. If he will agree to it (hx of not accessing medical care routinely), he should have neph follow up after d/c with Dr Vega in 2-4 wks post d/c to discuss labs below Care coordinated w/ Dr Stokes (2) Polyuria: Plan: pt consistently polyuric for unclear reasons > he had poor po prior to admission and was volume depleted > has had overall 2.5L NS this admission, but polyuric with or without the saline. Admission UA w/o glucose and admission urine osms 259 w/ serum osms 269; repaet UOSM 213 with Sosm- 279- with @ 4l uop his total osmolar output is 745 , which points more towards water diuresis .Chemistries not c/w occult diuretics > had s 24 hr urine for osm, Na, K, Cl, Creat, glucose, urea and a diuretic screen- results awaited -some of these labs will not post before discharge, most likely I would like him to be on fluid restriction of 1.5 lit with urine and plasma Osmol pre and post restriction, However he has had surgery today and may need fluids post procedure, Defer it for tomorrow. Admission and Anticipated Discharge Date Admission Date: September 24, 2021 Subjective Could not see the patinet as he has gone for surgery. Results & Data ([facility]) Vital Signs (Past 12 Hours) Vital Signs Temp Pulse Pulse Resp BP Pulse Ox 09/28/21 07:32 70 02/05/22 07:26 37.1 C 70 21 136/68 96 09/28/21 03:33 37.6 C H 76 18 138/76 99 09/27/21 23:02 37.3 C 75 20 125/76 97 Laboratory Results 09/27/21 05:52 09/28/21 08:47
--- NOTE | 2021-09-28 11:50 | Post Operative Brief Note ---
Immediate Post Op Note v1 Date of Surgery September 28, 2021 Pre & Post Diagnosis Operation Date: 09/24/21 16:15 Pre-Op Diagnosis: Abnormal CT scan Post-Op Diagnosis: Duodenal ulcer Gastritis Schatzki's Ring Operation Date: 09/28/21 09:45 Pre-Op Diagnosis: Left below knee osteomyelitis tibia, soft tissue compromise distal residual limb with exposed bone Post-Op Diagnosis: Left below knee osteomyelitis tibia, soft tissue compromise distal residual limb with exposed bone I identified the patient and participated in the time-out.: Yes Procedure Operation Date: 09/24/21 16:15 Actual Procedures p EGD Biopsy Cytology - Jhoana Nash DO Operation Date: 09/28/21 09:45 Actual Procedures p Left Above Knee Amputation(Left) - Govind Sánchez DO Surgeon Govind Sánchez DO Dancing Master Ron Jimenez PA-C Estimated Blood Loss 25 Findings Consistent with Post-Op Diagnosis Specimens Left lower leg for pathology status post above-knee amputation Drains Hemovac Drain Anesthesia Type General Regional Complications none Disposition Accompanied Patient To Recovery: No
[2021-09-28] MEDS: HYDROmorphone INJ 1 MG/ML SYRINGE IV PRN ×6 (12:00→12:36)
[2021-09-28] MEDS ORDERED: bisacodyL 10 MG SUPP PR PRN (13:10)
[2021-09-28] MEDS ORDERED: METOCLOPRAMIDE HCL INJ 5 MG/ML 2 ML VIAL IV PRN (13:10)
[2021-09-28] MEDS ORDERED: NALOXONE HCL 0.4 MG/1 ML VIAL/CARP IV PRN (13:10)
--- NOTE | 2021-09-28 13:31 | Anesthesiology Progress Note ---
Date of Service September 28, 2021 Anesthesia Post Procedure Vital Signs Vital Signs: Temp Pulse Pulse Pulse Resp BP Pulse Ox 09/28/21 13:15 36.4 C L 84 16 129/79 97 09/28/21 12:50 76 14 138/72 99 09/28/21 12:40 80 14 120/70 98 09/28/21 12:30 78 14 122/66 97 09/28/21 12:20 84 20 117/76 98 09/28/21 12:10 74 14 100/60 99 09/28/21 12:00 77 15 100/59 L 99 09/28/21 11:50 85 19 111/64 99 09/28/21 11:40 36.5 C 84 20 113/57 L 100 09/28/21 07:32 70 09/28/21 07:26 37.1 C 70 21 136/68 96 09/28/21 03:33 37.6 C H 76 18 138/76 99 09/27/21 23:02 37.3 C 75 20 125/76 97 09/27/21 22:30 78 09/27/21 19:00 37.2 C 76 18 126/72 96 09/27/21 15:48 83 09/27/21 15:40 36.4 C L 82 18 130/72 96 Pain Intensity Medial Chest: Pain Intensity: 4 Leg: Pain Intensity: 4 Transfer of Care Handoff Completed per policy Notes Mental Status: alert / awake / arousable Patient Amnestic to Procedure: Yes Nausea / Vomiting: adequately controlled Pain: adequately controlled Airway Patency, RR, SpO2: stable & adequate BP & HR: stable & adequate Hydration State: stable & adequate Anesthetic Complications: no major complications apparent
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
[2021-09-28] MEDS: MoRPHine SULFATE 4 MG/ML 1 ML CARP\\VIAL IV PRN (16:34)
[2021-09-28] MEDS: SENNA 8.6 MG TAB PO SCH (21:16)
[2021-09-28] MEDS: DOCUSATE SODIUM 100 MG CAP PO SCH (21:21)
[2021-09-29] MEDS: MoRPHine SULFATE 4 MG/ML 1 ML CARP\\VIAL IV PRN ×2 (01:10→11:21)
[2021-09-29] MEDS: CHLORASEPTIC 1.4% SOLN 180 ML BTL MT PRN ×2 (01:11→11:24)
[2021-09-29] MEDS: oxyCODONE HCL IR 5 MG TAB (IMMEDIATE RELEASE) PO PRN ×4 (04:30→21:07)
[2021-09-29 04:55] LABS: Creatinine 24 Hour Urine 1.2 gm/24 HR (0.6-2.5); Urine Creatinine 29.7 mg/dl; Urine Potassium 18.1 mmol/L
[2021-09-29 07:44] LABS: Basophils # (auto) 0.01 K/uL (0-0.2); Basophils % (auto) 0.1 %; Eosinophils # (auto) 0.13 K/uL (0-0.5); Eosinophils % (auto) 0.9 %; Hematocrit (blood only) 30.9 % (42-52); Hemoglobin 10.7 g/dL (14.0-18.0); Immature Granulocytes # (auto) 0.05 K/uL (0.00-0.02); Immature Granulocytes % (auto) 0.3 %; Lymphocytes # (auto) 2.27 K/uL (1.2-3.4); Lymphocytes % (auto) 15.4 %; Mean Corpuscular Hemoglobin 30.7 pg (25-34); Mean Corpuscular Hgb Conc 34.6 g/dL (32-36); Mean Corpuscular Volume 88.5 fL (80-100); Mean Platelet Volume 8.9 fL (7.4-10.4); Monocytes # (auto) 1.42 K/uL (0.11-0.59); Monocytes % (auto) 9.7 %; Neutrophils # (auto) 10.83 K/uL (1.4-6.5); Neutrophils % (auto) 73.6 %; Platelet Count 425 K/uL (130-400); RDW Coefficient of Variation 13.2 % (11.5-14.5); RDW Standard Deviation 42.8 fL (36.4-46.3); Red Blood Count 3.49 M/uL (4.7-6.1); White Blood Count 14.71 K/uL (4.8-10.8)
[2021-09-29 08:04] LABS: BUN Creatinine Ratio 20.8 (10-20); Creatinine Clr Calc Pharmacy 109.9 ml/min; Est GFR (African American) 128.7 ml/min; Potassium 3.7 mmol/L (3.5-5.1)
[2021-09-29] MEDS: DOCUSATE SODIUM 100 MG CAP PO SCH ×2 (08:12→21:04)
[2021-09-29] MEDS: NYSTATIN SUSP 500,000 U/5 ML UDC PO SCH ×4 (08:12→21:07)
[2021-09-29] MEDS: GABAPENTIN 100 MG CAP PO SCH ×3 (08:13→21:04)
[2021-09-29] MEDS: PANTOprazole 40 MG TAB PO SCH ×2 (08:14→21:05)
[2021-09-29] MEDS: SUCRALFATE 1 GM TAB PO SCH ×4 (08:14→21:07)
[2021-09-29] MEDS: MULTIVITAMIN TAB PO SCH (08:14)
--- NOTE | 2021-09-29 09:51 | Nephrology Progress Note ---
Date of Service September 29, 2021 Assessment & Plan (1) Chronic hyponatremia: Plan: Hypotonic euvolemic versus hypovolemic hyponatremia initially improved at acceptable rate after stopping nsaid which can cause this problem and w/ patient per his report taking better PO. However improvement now stalled. He may be prone to this problem due to chronic insterstitial lung disease. w/ sNa 126, improved to 131 by 24 hrs later with minimal intervention apart from stopping nsaid w/ gentle fluid repletion; no other medications or fluid intervention needed. - sNA IS 131 today -eval polyuria as below > combo of hyponatremia and polyuria without polydipsia or glucosuria is unusual Maintain eukalemia -daily BMP ->>recommend dietary consult in addition to offering/pushing protein supplements > pt is restricting food in part d/t GI sx- encourage higher sodium diet here; encourage salty snack. He will need salt tabs if sodium does not correct with above measures. If he will agree to it (hx of not accessing medical care routinely), he should have neph follow up after d/c with Dr Vega in 2-4 wks post d/c to discuss labs below Care coordinated w/ Dr Stokes (2) Polyuria: Plan: pt consistently polyuric for unclear reasons > he had poor po prior to admission and was volume depleted > has had overall 2.5L NS this admission, but polyuric with or without the saline. Admission UA w/o glucose and admission urine osms 259 w/ serum osms 269; repaet UOSM 213 with Sosm- 279- with @ 4l uop his total osmolar output is 745 , which points more towards water diuresis .Chemistries not c/w occult diuretics > had s 24 hr urine for osm, Na, K, Cl, Creat, glucose, urea and a diuretic screen- results awaited -some of these labs will not post before discharge, most likely - fluid restriction of 1.5 lit with urine and plasma Osmol post restriction, it sna still does not rise with restriction , add 2 g BID of sodium chloride tabs. Admission and Anticipated Discharge Date Admission Date: September 24, 2021 Subjective Lying comfortably in BED. Had Left above knee amputation on 09/28 Admitted to drinking 9-10 can of 16 oz Anne devin with " lots " of coffee tea and water , even while in the hospital Before admission used to drink even more. Comfortable, no c/o pain from the surgical site. Review of Systems Review of Systems: All systems reviewed & are unremarkable except as noted in Subjective Results & Data ([facility]) Vital Signs (Past 12 Hours) Vital Signs Temp Pulse Pulse Pulse Resp BP Pulse Ox 09/29/21 09:16 75 09/29/21 07:19 36.5 C 77 20 132/72 97 09/29/21 02:46 37.3 C 76 20 145/78 H 96 09/29/21 02:18 77 09/28/21 23:03 36.8 C 76 18 148/77 H 97 Laboratory Results 09/29/21 06:38 09/29/21 06:38
--- NOTE | 2021-09-29 10:41 | Orthopedic Progress Note ---
Date of Service September 29, 2021 Assessment & Plan (1) Amputation stump pain: Plan: Postop day #1 status post left AKA Dressing change today. Hemovac removed during the dressing change. We discussed every other day dressing changes. Nonweightbearing on the left lower extremity. Discharge planning uncertain at this time. He will follow up with Dr. Sánchez in approximately 2 weeks. Admission and Anticipated Discharge Date Admission Date: September 24, 2021 Subjective Feels some pressure in the left stump as though the Homero bandage is too tight. At rest, he has little to no pain within the stump. However, you have an increase in pain with any spasm. Physical Exam Constitutional: WD/WN, vitals as above Musculoskeletal: Left leg: Well approximated AKA stump. All juan antonio in place. No drainage or bleeding from the flap. Hemovac was in place but removed during dressing change. 25 cc from Hemovac over the past 24 hours. Psychiatric: A+Ox3, euthymic affect Speech: normal rate/rhythm/volume of speech Results & Data ([facility]) Vital Signs (Past 12 Hours) Vital Signs Temp Pulse Pulse Pulse Resp BP Pulse Ox 09/29/21 09:16 75 09/29/21 07:19 36.5 C 77 20 132/72 97 09/29/21 02:46 37.3 C 76 20 145/78 H 96 09/29/21 02:18 77 09/28/21 23:03 36.8 C 76 18 148/77 H 97
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
[2021-09-29] MEDS: SENNA 8.6 MG TAB PO SCH (21:07)
[2021-09-30] MEDS: DICLOFENAC SOD 1% GEL 100 GM TUBE EXT PRN ×3 (01:00→20:57)
[2021-09-30] MEDS: oxyCODONE HCL IR 5 MG TAB (IMMEDIATE RELEASE) PO PRN ×4 (05:41→22:38)
[2021-09-30] MEDS: MoRPHine SULFATE 4 MG/ML 1 ML CARP\\VIAL IV PRN ×3 (06:36→20:52)
[2021-09-30] MEDS: PANTOprazole 40 MG TAB PO SCH ×2 (08:55→21:04)
[2021-09-30] MEDS: SUCRALFATE 1 GM TAB PO SCH ×4 (08:55→21:04)
[2021-09-30] MEDS: GABAPENTIN 100 MG CAP PO SCH ×3 (08:55→21:04)
[2021-09-30] MEDS: NYSTATIN SUSP 500,000 U/5 ML UDC PO SCH ×4 (08:56→20:55)
[2021-09-30] MEDS: DOCUSATE SODIUM 100 MG CAP PO SCH ×2 (08:57→21:01)
[2021-09-30] MEDS: MULTIVITAMIN TAB PO SCH (09:19)
--- NOTE | 2021-09-30 10:16 | Orthopedic Progress Note ---
Date of Service September 30, 2021 Assessment & Plan (1) Amputation stump pain: Plan: Postop day #2 status post left AKA Continue daily dressing changes. With no wound drainage, can possibly do every other day. Nonweightbearing on the left lower extremity. Discharge planning uncertain at this time. He will follow up with Dr. Sánchez in approximately 2 weeks. ORTHO to sign off at this time. Please call with any questions. Admission and Anticipated Discharge Date Admission Date: September 24, 2021 Subjective POD 2 Pt sleeping upon entering room. Easily awoken. States he had some muscle spasms in the stump last night that woke him up. Pain off and on. No other complaints. Physical Exam Physical Exam: Dressing changed. Wound is C/D/I. No erythema. Mild swelling. No drainage. Wound redressed. Results & Data ([facility]) Vital Signs (Past 12 Hours) Vital Signs Temp Pulse Pulse Resp BP Pulse Ox 09/30/21 07:49 76 09/30/21 06:13 37.2 C 78 16 147/76 H 96 09/30/21 03:26 37 C 77 18 128/83 96 09/29/21 23:01 77
--- NOTE | 2021-09-30 10:37 | Nephrology Progress Note ---
Date of Service September 30, 2021 Assessment & Plan Admission and Anticipated Discharge Date Admission Date: September 24, 2021 Subjective Assessment & Plan (1) Chronic hyponatremia: Plan: Hypotonic euvolemic versus hypovolemic hyponatremia initially improved at acceptable rate after stopping nsaid which can cause this problem and w/ patient per his report taking better PO. However improvement now stalled. He may be prone to this problem due to chronic insterstitial lung disease. w/ sNa 126, improved to 131 by 24 hrs later with minimal intervention apart from stopping nsaid w/ gentle fluid repletion; no other medications or fluid intervention needed. - sNA has been in the low 130's for last few days. Might be the best we can get. -eval polyuria as below > combo of hyponatremia and polyuria without polydipsia or glucosuria is unusual -daily BMP ->>recommend dietary consult in addition to offering/pushing protein supplements > pt is restricting food in part d/t GI sx- encourage higher sodium diet here; encourage salty snack. He will need salt tabs if sodium does not correct with above measures. If he will agree to it (hx of not accessing medical care routinely), he should have neph follow up after d/c with Dr Celeste in 2-4 wks post d/c to discuss labs below (2) Polyuria: Plan: pt consistently polyuric for unclear reasons > he had poor po prior to admission and was volume depleted > has had overall 2.5L NS this admission, but polyuric with or without the saline. Admission UA w/o glucose and which points more towards water diuresis . Polyuria should settle down in the coming days--too many variables at this point. tests are pending and will follow Chemistries not c/w occult diuretics > had s 24 hr urine for osm, Na, K, Cl, Creat, glucose, urea and a diuretic screen- results awaited -some of these labs will not post before discharge, most likely - fluid restriction of 1.5 lit Subjective Lying comfortably in BED. Had Left above knee amputation on 09/28 Admitted to drinking 9-10 can of 16 oz Anne devin with " lots " of coffee tea and water , even while in the hospital Before admission used to drink even more. Comfortable, no c/o pain from the surgical site. Review of Systems Review of Systems: All systems reviewed & are unremarkable except as noted in Subjective Exam---Awake alert oriented x3. mucous membrane moist neck is supple no JVD chest bilateral clear to auscultation CVS S1-S2 regular abdomen is soft nontender bilateral above-knee amputation. Results & Data ([facility]) Vital Signs (Past 12 Hours) Vital Signs Temp Pulse Pulse Resp BP Pulse Ox 09/30/21 07:49 76 09/30/21 06:13 37.2 C 78 16 147/76 H 96 09/30/21 03:26 37 C 77 18 128/83 96 09/29/21 23:01 77
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
[2021-09-30] MEDS: BACLOFEN 10 MG TAB PO SCH ×2 (14:29→21:35)
[2021-09-30] MEDS: SENNA 8.6 MG TAB PO SCH (21:01)
[2021-10-01] MEDS: MoRPHine SULFATE 4 MG/ML 1 ML CARP\\VIAL IV PRN ×3 (02:26→22:01)
[2021-10-01] MEDS: oxyCODONE HCL IR 5 MG TAB (IMMEDIATE RELEASE) PO PRN ×3 (06:02→20:41)
[2021-10-01] MEDS: DICLOFENAC SOD 1% GEL 100 GM TUBE EXT PRN ×3 (06:04→20:50)
[2021-10-01 06:46] LABS: Basophils # (auto) 0.05 K/uL (0-0.2); Basophils % (auto) 0.5 %; Eosinophils % (auto) 3.7 %; Hematocrit (blood only) 30.7 % (42-52); Hemoglobin 10.3 g/dL (14.0-18.0); Immature Granulocytes # (auto) 0.03 K/uL (0.00-0.02); Immature Granulocytes % (auto) 0.3 %; Lymphocytes # (auto) 2.77 K/uL (1.2-3.4); Lymphocytes % (auto) 25.4 %; Mean Corpuscular Hemoglobin 29.9 pg (25-34); Mean Corpuscular Hgb Conc 33.6 g/dL (32-36); Mean Platelet Volume 8.5 fL (7.4-10.4); Monocytes # (auto) 0.99 K/uL (0.11-0.59); Monocytes % (auto) 9.1 %; Neutrophils # (auto) 6.68 K/uL (1.4-6.5); Platelet Count 390 K/uL (130-400); RDW Coefficient of Variation 13.2 % (11.5-14.5); RDW Standard Deviation 42.8 fL (36.4-46.3); Red Blood Count 3.45 M/uL (4.7-6.1); White Blood Count 10.92 K/uL (4.8-10.8)
[2021-10-01 07:15] LABS: BUN Creatinine Ratio 34.6 (10-20); Calcium 8.9 mg/dl (8.5-10.1); Creatinine Clr Calc Pharmacy 109.8 ml/min; Est GFR (African American) 129.7 ml/min; Est GFR (Non-African American) 111.9 ml/min; Potassium 3.9 mmol/L (3.5-5.1)
[2021-10-01] MEDS: BACLOFEN 10 MG TAB PO SCH ×3 (08:53→20:42)
[2021-10-01] MEDS: GABAPENTIN 100 MG CAP PO SCH ×3 (08:54→20:45)
[2021-10-01] MEDS: MULTIVITAMIN TAB PO SCH (08:54)
[2021-10-01] MEDS: SUCRALFATE 1 GM TAB PO SCH ×4 (08:55→20:46)
[2021-10-01] MEDS: PANTOprazole 40 MG TAB PO SCH ×2 (08:55→20:45)
[2021-10-01] MEDS: NYSTATIN SUSP 500,000 U/5 ML UDC PO SCH ×4 (08:55→20:44)
[2021-10-01] MEDS: DOCUSATE SODIUM 100 MG CAP PO SCH ×2 (08:56→20:43)
--- NOTE | 2021-10-01 09:06 | Nephrology Progress Note ---
Date of Service October 01, 2021 Assessment & Plan Admission and Anticipated Discharge Date Admission Date: September 24, 2021 Subjective Assessment & Plan (1) Chronic hyponatremia: Plan: Hypotonic euvolemic versus hypovolemic hyponatremia initially improved at acceptable rate after stopping nsaid which can cause this problem and w/ patient per his report taking better PO. However improvement now stalled. He may be prone to this problem due to chronic insterstitial lung disease. w/ sNa 126, improved to 131 by 24 hrs later with minimal intervention apart from stopping nsaid w/ gentle fluid repletion; no other medications or fluid intervention needed. - sNA 134 today -eval polyuria ---Does not have any polyuria anymore--UOP was only 950 ml yesterday. ->>recommend dietary consult in addition to offering/pushing protein supplements > pt is restricting food in part d/t GI sx- encourage higher sodium diet here; encourage salty snack. follow up after d/c with Dr Celeste in 2-4 wks post d/c to discuss labs below (2) Polyuria:--Does not have it anymore. tests are pending which can be followed after discharge but I ddont think there is anything of clinical significance here. - fluid restriction of 1.5 lit Results & Data ([facility]) Vital Signs (Past 12 Hours) Vital Signs Temp Pulse Pulse Resp BP Pulse Ox 10/01/21 07:51 37.0 C 69 18 101/64 93 10/01/21 07:15 65 10/01/21 03:07 37 C 66 18 107/65 98 09/30/21 22:29 37.3 C 66 16 109/64 96 09/30/21 22:18 69
[2021-10-01] MEDS: MAGNESIUM HYDROXIDE SUSP 30 ML UDC PO PRN (12:00)
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
[2021-10-01] MEDS: SENNA 8.6 MG TAB PO SCH (20:43)
[2021-10-02] MEDS: MoRPHine SULFATE 4 MG/ML 1 ML CARP\\VIAL IV PRN ×4 (02:45→22:47)
[2021-10-02] MEDS: oxyCODONE HCL IR 5 MG TAB (IMMEDIATE RELEASE) PO PRN ×4 (03:55→20:25)
[2021-10-02] MEDS: BACLOFEN 10 MG TAB PO SCH ×3 (08:34→20:29)
[2021-10-02] MEDS: SUCRALFATE 1 GM TAB PO SCH ×4 (08:34→20:25)
[2021-10-02] MEDS: DOCUSATE SODIUM 100 MG CAP PO SCH ×2 (08:35→20:29)
[2021-10-02] MEDS: MULTIVITAMIN TAB PO SCH (08:36)
[2021-10-02] MEDS: GABAPENTIN 100 MG CAP PO SCH ×3 (08:36→20:25)
[2021-10-02] MEDS: NYSTATIN SUSP 500,000 U/5 ML UDC PO SCH ×4 (08:37→20:25)
[2021-10-02] MEDS: PANTOprazole 40 MG TAB PO SCH ×2 (08:38→20:25)
[2021-10-02] MEDS: DICLOFENAC SOD 1% GEL 100 GM TUBE EXT PRN ×2 (08:45→20:26)
[2021-10-02] MEDS: MAGNESIUM HYDROXIDE SUSP 30 ML UDC PO PRN (11:48)
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
[2021-10-02] MEDS: SENNA 8.6 MG TAB PO SCH (20:25)
[2021-10-03 01:22] LABS: Calcium 24 hr Urine 155 mg/24 h (55-300)
[2021-10-03] MEDS: oxyCODONE HCL IR 5 MG TAB (IMMEDIATE RELEASE) PO PRN ×4 (01:56→21:57)
[2021-10-03] MEDS: SUCRALFATE 1 GM TAB PO SCH ×4 (07:44→21:57)
[2021-10-03] MEDS: GABAPENTIN 100 MG CAP PO SCH ×3 (08:00→21:57)
[2021-10-03] MEDS: MULTIVITAMIN TAB PO SCH (08:00)
[2021-10-03] MEDS: NYSTATIN SUSP 500,000 U/5 ML UDC PO SCH ×4 (08:01→21:56)
[2021-10-03] MEDS: PANTOprazole 40 MG TAB PO SCH ×2 (08:01→21:57)
[2021-10-03] MEDS: DOCUSATE SODIUM 100 MG CAP PO SCH ×2 (08:05→21:58)
[2021-10-03] MEDS: BACLOFEN 10 MG TAB PO SCH ×3 (08:05→21:57)
[2021-10-03] MEDS: MoRPHine SULFATE 4 MG/ML 1 ML CARP\\VIAL IV PRN ×2 (11:09→17:43)
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
[2021-10-03] MEDS: SENNA 8.6 MG TAB PO SCH (21:58)
[2021-10-04] MEDS: oxyCODONE HCL IR 5 MG TAB (IMMEDIATE RELEASE) PO PRN ×3 (05:00→17:11)
[2021-10-04] MEDS: SUCRALFATE 1 GM TAB PO SCH ×3 (08:14→17:13)
[2021-10-04] MEDS: GABAPENTIN 100 MG CAP PO SCH ×2 (08:14→15:20)
[2021-10-04] MEDS: NYSTATIN SUSP 500,000 U/5 ML UDC PO SCH ×3 (08:15→17:13)
[2021-10-04] MEDS: MULTIVITAMIN TAB PO SCH (08:15)
[2021-10-04] MEDS: PANTOprazole 40 MG TAB PO SCH (08:15)
[2021-10-04] MEDS: DOCUSATE SODIUM 100 MG CAP PO SCH (08:18)
[2021-10-04] MEDS: BACLOFEN 10 MG TAB PO SCH ×2 (11:55→15:15)
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
[2021-10-04] MEDS: MoRPHine SULFATE 4 MG/ML 1 ML CARP\\VIAL IV PRN (15:16)
[2021-10-04] MEDS: DICLOFENAC SOD 1% GEL 100 GM TUBE EXT PRN (15:36)
== END 2021-10-04 19:00 | disposition home or self-care (01) | DRG 475 ==
LOC: ED 03:55 → SUATTDRO 07:40 → EDINP 07:40 → 2N 09:51 → 3W 10-01 19:49
DX: K59.00 Constipation, unspecified; T24.0 Burn of unspecified degree of lower limb, except ankle and foot; Z89.511 Acquired absence of right leg below knee; K26.9 Duodenal ulcer, unspecified as acute or chronic, without hemorrhage or perforation; E87.1 Hypo-osmolality and hyponatremia; Y92.009 Unspecified place in unspecified non-institutional (private) residence as the place of occurrence of the external cause; E87.6 Hypokalemia; M87.059 Idiopathic aseptic necrosis of unspecified femur; M86.9 Osteomyelitis, unspecified; R63.1 Polydipsia; D64.9 Anemia, unspecified; T39.395A Adverse effect of other nonsteroidal anti-inflammatory drugs [NSAID], initial encounter; Z89.512 Acquired absence of left leg below knee; K26.7 Chronic duodenal ulcer without hemorrhage or perforation; K29.70 Gastritis, unspecified, without bleeding; I45.10 Unspecified right bundle-branch block; T87.89 Other complications of amputation stump; T87.54 Necrosis of amputation stump, left lower extremity; F17.210 Nicotine dependence, cigarettes, uncomplicated; J84.9 Interstitial pulmonary disease, unspecified; K22.2 Esophageal obstruction; E83.42 Hypomagnesemia; Z96.643 Presence of artificial hip joint, bilateral; G89.29 Other chronic pain